=== PATIENT | female | born 1950 | race Caucasian/White ===

== ENCOUNTER 2017-03-07 14:12 | Emergency (ER) | payer MEDICARE ==
--- NOTE | 2017-03-07 14:40 | ERPHSYRPT ---
- History of Present Illness Time Seen by Provider: 03/07/17 14:36 Source: patient, family Exam Limitations: no limitations Patient Subjective Stated Complaint: pt states she has had back pain that radiated down right leg and buttock for the past 2 days. states she vomited once this morning due to pain. denies any injury. states pain is normally a 5 everday. Triage Nursing Assessment: pt pink, warm, dry. pt ambulated into er on own. no deformities noted in back. pedal pulses strong. pt smells of etoh. Physician History: The patient is a 66-year-old female with her significant other with multiple complaints and is a poor historian. She gave detailed history of back pain with pain radiating down the back of her right leg. There was no mention to the nurse of shortness of breath. When I interview the patient she denies back pain but instead tells me that she is short of breath for 2 days. She states that her primary medical doctor discontinued her prescription for Xanax and [place] several months ago. Her past medical history is significant for anxiety and COPD. Timing/Duration: day(s) (2) Activities at Onset: none Severity of Dyspnea-Max: mild Severity of Dyspnea-Current: mild Possible Cause: occasional episodes, smoke exposure Modifying Factors: Improves With: albuterol inhaler, exertion Associated Symptoms: denies symptoms Allergies/Adverse Reactions: No Known Drug Allergies Allergy (Verified 03/07/17 14:25) Home Medications: Estradiol 1 mg PO DAILY 07/18/14 [History] Hydrocodone Bit/Acetaminophen [[place] 10-325 Tablet] 1 tab PO Q8H PRN PRN [History] Ranitidine HCl 300 mg PO DAILY 07/18/14 [History] Aripiprazole [Abilify] 1 mg PO DAILY 01/06/15 [History] Gabapentin 300 mg PO BID 03/07/17 [History] Hx Tetanus, Diphtheria Vaccination/Date Given: Yes (up to date) Hx Influenza Vaccination/Date Given: Yes Hx Pneumococcal Vaccination/Date Given: No Immunizations Up to Date: Yes - Review of Systems Constitutional: No Fever, No Chills Eyes: No Symptoms Ears, Nose, & Throat: No Symptoms Respiratory: Dyspnea Cardiac: No Chest Pain, No Edema, No Syncope Abdominal/Gastrointestinal: No Abdominal Pain, No Nausea, No Vomiting, No Diarrhea Genitourinary Symptoms: No Dysuria Musculoskeletal: No Back Pain, No Neck Pain Skin: No Rash Neurological: No Dizziness, No Focal Weakness, No Sensory Changes Psychological: No Symptoms Endocrine: No Symptoms Hematologic/Lymphatic: No Symptoms Immunological/Allergic: No Symptoms All Other Systems: Reviewed and Negative - Past Medical History Pertinent Past Medical History: Yes Neurological History: No Pertinent History ENT History: Cataracts Cardiac History: No Pertinent History Respiratory History: COPD Endocrine Medical History: No Pertinent History Musculoskeletal History: Arthritis, Degenerative Disk Disease GI Medical History: GERD, Irritable Bowel History: No Pertinent History Psycho-Social History: Depression Female Reproductive Disorders: No Pertinent History Other Medical History: chronic back pain - Past Surgical History Past Surgical History: No Neuro Surgical History: No Pertinent History Cardiac: No Pertinent History Respiratory: No Pertinent History Gastrointestinal: No Pertinent History Genitourinary: No Pertinent History Musculoskeletal: Orthopedic Surgery Female Surgical History: No Pertinent History Other Surgical History: CARPAL TUNNEL, - Social History Smoking Status: Current every day smoker How long have you smoked: 55 Exposure to second hand smoke: Yes Drug Use: marijuana Patient Lives Alone: No - Nursing Vital Signs Nursing Vital Signs: Initial Vital Signs Temperature 98.4 F Temperature Source Oral Pulse Rate 68 Respiratory Rate 16 Blood Pressure [Right Arm] 148/76 Pain Intensity 6 - Physical Exam General Appearance: no apparent distress, alert Eye Exam: PERRL/EOMI Neck Exam: normal inspection, supple Respiratory Exam: rhonchi Cardiovascular/Chest Exam: normal heart sounds, regular rate/rhythm Abdominal/Gastrointestinal Exam: soft, No tenderness, No distention, No mass Rectal Exam: not done Extremity Exam: non-tender Neurologic Exam: intoxicated appearance, depressed mood/affect Skin Exam: normal color, warm, No dry SpO2 Interpretation: normal SpO2: 97 Oxygen Delivery: Room Air - Radiology Exams Chest X-ray Interpretation: Teleradiologist Report, Negative (stable nonacute chest per DR Lyon.) Ordered Tests: Active Orders 24 hr Category Date Time Status IV Insertion STAT Care 03/07/17 14:24 Active CHEST 2 VIEWS (PA AND LAT) Stat Exams 03/07/17 14:41 Completed BMP Stat Lab 03/07/17 14:50 Completed CBC W DIFF Stat Lab 03/07/17 14:50 Completed TROPONIN Stat Lab 03/07/17 14:50 Completed Respiratory Nebulizer STAT RT 03/07/17 14:42 Completed Medication Summary Discontinued Medications Generic Name Dose Route Start Last Admin Trade Name Barbi PRN Reason Stop Dose Admin Albuterol/Ipratropium 3 ml 03/07/17 14:41 03/07/17 14:56 Duoneb 0.5-3 Mg/3 Ml Neb IH 03/07/17 14:42 3 ml STAT ONE Administration Albuterol/Ipratropium Confirm 03/07/17 14:53 Duoneb 0.5-3 Mg/3 Ml Neb Administered 03/07/17 14:54 Dose 3 ml IH .STK-MED ONE Methylprednisolone Sodium Succinate 125 mg 03/07/17 14:41 03/07/17 14:52 Solu-Medrol 125 Mg IV 03/07/17 14:42 125 mg STAT ONE Administration Methylprednisolone Sodium Succinate Confirm 03/07/17 14:50 Solu-Medrol 125 Mg Administered 03/07/17 14:51 Dose 125 mg .ROUTE .STK-MED ONE Ondansetron HCl 4 mg 03/07/17 15:16 03/07/17 15:18 Zofran 4 Mg/2 Ml Vial IV 03/07/17 15:17 4 mg STAT ONE Administration Ondansetron HCl Confirm 03/07/17 15:18 Zofran 4 Mg/2 Ml Vial Administered 03/07/17 15:19 Dose 4 mg .ROUTE .STK-MED ONE Lab/Rad Data: Laboratory Result Diagrams 03/07/17 14:50 03/07/17 14:50 Laboratory Results 03/07/17 03/07/17 Range/Units 14:50 14:50 WBC 6.3 (4.0-10.5) K/mm3 RBC 4.24 (4.1-5.4) M/mm3 Hgb 14.1 (12.0-16.0) gm/dl Hct 42.7 (35-47) % MCV 100.7 H (78-100) fl MCH 33.3 H (26-32) pg MCHC 33.0 (32-36) g/dl RDW 13.0 (11.5-14.0) % Plt Count 329 (150-450) K/mm3 MPV 10.2 H (6-9.5) fl Gran % 37.3 (36.0-66.0) % Lymphocytes % 49.6 H (24.0-44.0) % Monocytes % 9.9 (0.0-12.0) % Eosinophils % 2.4 (0.00-5.0) % Basophils % 0.8 (0.0-0.4) % Basophils # 0.05 (0-0.4) Sodium 136 (136-145) mEq/L Potassium 4.2 (3.5-5.1) mEq/L Chloride 99 (98-107) mEq/L Carbon Dioxide 27.0 (21-32) mEq/L Anion Gap 14.4 (5-15) MEQ/L BUN 7 L (9-20) mg/dL Creatinine 0.75 (0.55-1.30) mg/dl Estimated GFR > 60 ML/MIN Glucose 98 (70-110) MG/DL Calcium 8.8 (8.5-10.1) mg/dL Troponin I < 0.017 (0.000-0.056) ng/ml - Progress Progress: improved Air Movement: good Progress Note: 03/07/17 15:39 After a DuoNeb treatment and Solu-Medrol 125 mg IV, the patient is feeling and breathing better. The patient also asked me if this would help the sciatica in her right leg. I said that the steroid given today and the steroid prescription should help inflammation. Blood Culture(s) Obtained: No Antibiotics given: No Counseled pt/family regarding: lab results, diagnosis, need for follow-up, rad results - Departure Time of Disposition: 15:40 Departure Disposition: Home Clinical Impression: Dyspnea on effort Condition: Stable Critical Care Time: No Additional Instructions: You had shortness of breath that was relieved with albuterol and a steroid in the ER. You were given a prescription for prednisone 60 mg once a day for 5 days. Continue with your albuterol inhaler as needed at home. Follow-up as scheduled with your primary medical doctor on Tuesday. Prescriptions: Prednisone 10 mg [Deltasone 10 mg] 60 mg PO UD #30 tablet
[2017-03-07] MEDS ORDERED: DUONEB 0.5-3 MG/3 ml Neb IH ONE ×2 (14:41→14:53)
[2017-03-07] MEDS ORDERED: solu-MEDROL 125 MG IV ONE (14:41)
[2017-03-07] MEDS ORDERED: solu-MEDROL 125 MG ONE (14:50)
[2017-03-07 14:53] LABS: BASOPHIL % 0.8 % (0.0-0.4); Eosinophil % 2.4 % (0.00-5.0); Granulocytes % 37.3 % (36.0-66.0); Lymphocytes % 49.6 % (24.0-44.0); Mean Cell Volume 100.7 fl (78-100); Mean Corpuscular Hemoglobin 33.3 pg (26-32); Mean Platelet Volume 10.2 fl (6-9.5); Monocytes % 9.9 % (0.0-12.0); Platelet Count 329 K/mm3 (150-450); Red Blood Count 4.24 M/mm3 (4.1-5.4); White Blood Count 6.3 K/mm3 (4.0-10.5)
[2017-03-07 15:07] LABS: ANION GAP 14.4 MEQ/L (5-15); BLOOD UREA NITROGEN 7 mg/dL (9-20); CHLORIDE 99 mEq/L (98-107); Glucose 98 MG/DL (70-110); Potassium 4.2 mEq/L (3.5-5.1); SODIUM 136 mEq/L (136-145); TROPONIN < 0.017 ng/ml (0.000-0.056)
--- NOTE | 2017-03-07 15:10 | XRAY ---
Indication: Short of breath and weakness. Comparison: February 11, 2016. PA/lateral chest remains hyperinflated and clear. Heart is not enlarged. Vascularity normal. Bony thorax intact again with minimal scoliosis. Impression: Stable nonacute chest.
[2017-03-07] MEDS ORDERED: Zofran 4 MG/2 ML VIAL IV ONE (15:16)
[2017-03-07] MEDS ORDERED: Zofran 4 MG/2 ML VIAL ONE (15:18)
[2017-03-07 15:39] VITALS: O2SAT 97
[2017-03-07 15:57] VITALS: BP 172/81; PULSE 64
== END 2017-03-07 15:54 | disposition home or self-care (01) ==
LOC: ED 14:12
DX: R06.09 Other forms of dyspnea (principal); J44.9 Chronic obstructive pulmonary disease, unspecified; F17.200 Nicotine dependence, unspecified, uncomplicated
CPT/HCPCS: 36000; 36415; 71020; 80048; 84484; 85025; 94640; 96374; 96375; 99284; J2405; J2930; A9270-GY

== ENCOUNTER 2017-06-25 19:24 | Emergency (ER) | payer MEDICARE ==
[2017-06-25] MEDS ORDERED: Rocephin 1000 MG INJ IM ONE (19:33)
[2017-06-25] MEDS ORDERED: Rocephin 1000 MG INJ ONE (19:38)
--- NOTE | 2017-06-25 19:38 | ERPHSYRPT ---
- History of Present Illness Time Seen by Provider: 06/25/17 19:34 Source: patient Physician History: 67-year-old female came to the emergency room with complaining of severe sore throat and right-sided neck pain. Patient was seen by her primary care physician to 3 days ago for earache and was treated conservatively. Since yesterday she started having a severe sore throat and difficulty in swallowing as well as painful swallowing, so she came to the emergency room for further evaluation. She denies any nausea, vomiting, headache, fever, chills, urinary symptoms. Timing/Duration: gradual onset ENT Location: ear (R) Associated Symptoms: ear pain (R), sore throat Allergies/Adverse Reactions: No Known Drug Allergies Allergy (Verified 03/07/17 14:25) Home Medications: Estradiol 1 mg PO DAILY 07/18/14 [History] Hydrocodone Bit/Acetaminophen [[place] 10-325 Tablet] 1 tab PO Q8H PRN PRN [History] Ranitidine HCl 300 mg PO DAILY 07/18/14 [History] Aripiprazole [Abilify] 1 mg PO DAILY 01/06/15 [History] Gabapentin 300 mg PO BID 03/07/17 [History] Hx Tetanus, Diphtheria Vaccination/Date Given: Yes (up to date) Hx Influenza Vaccination/Date Given: Yes Hx Pneumococcal Vaccination/Date Given: No - Review of Systems Constitutional: No Symptoms Eyes: No Symptoms Ears, Nose, & Throat: Painful Swallowing Respiratory: No Symptoms Cardiac: No Symptoms Abdominal/Gastrointestinal: No Symptoms Genitourinary Symptoms: No Symptoms Musculoskeletal: No Symptoms Skin: No Symptoms - Past Medical History Pertinent Past Medical History: Yes Neurological History: No Pertinent History ENT History: Cataracts Cardiac History: No Pertinent History Respiratory History: COPD Endocrine Medical History: No Pertinent History Musculoskeletal History: Arthritis, Degenerative Disk Disease GI Medical History: GERD, Irritable Bowel History: No Pertinent History Psycho-Social History: Depression Female Reproductive Disorders: No Pertinent History Other Medical History: chronic back pain - Past Surgical History Past Surgical History: No Neuro Surgical History: No Pertinent History Cardiac: No Pertinent History Respiratory: No Pertinent History Gastrointestinal: No Pertinent History Genitourinary: No Pertinent History Musculoskeletal: Orthopedic Surgery Female Surgical History: No Pertinent History Other Surgical History: CARPAL TUNNEL, - Social History Smoking Status: Current every day smoker How long have you smoked: 55 Exposure to second hand smoke: Yes Drug Use: marijuana Patient Lives Alone: No - Physical Exam General Appearance: no apparent distress Eye Exam: bilateral eye: normal inspection, PERRL, EOMI, abnormal EOM, abnormal pupil, conjunctival hemorrhage, photophobia, vision changes, other Ear Exam: bilateral ear: auricle normal, canal normal, TM normal, bleeding, discharge, erythema, foreign body, swelling, tenderness, TM dull, TM red, TM bulging, TM perforation, other Nasal Exam: normal inspection Throat Exam: moist mucus membranes, pharynx swelling Neck Exam: normal inspection Cardiovascular/Respiratory Exam: chest non-tender Abdominal Exam: non-tender Neurologic Exam: alert, oriented x 3 - Course Nursing assessment & vital signs reviewed: Yes - Progress Progress: unchanged Counseled pt/family regarding: diagnosis, need for follow-up - Departure Time of Disposition: 19:37 Departure Disposition: Home Clinical Impression: Tonsillitis with exudate Condition: Stable Critical Care Time: No Referrals: PINKY MARCH [Primary Care Provider] - Instructions: Strep Throat Additional Instructions: UPPER RESPIRATORY INFECTIONS 1. The signs and symptoms of a cold may last up to 10 days. These illnesses are due to viruses which are not treatable with antibiotics. 2. The following suggestions can aid in recovery and to minimize symptoms: A. Increase fluid intake. B. Acetaminophen or Ibuprofen as directed. C. Avoid smoking environments as this will increase the risk of developing pneumonia. D. For children, may use a cool mist vaporizer in the child's room. 3. Contact your Family Physician if you note: A. Persisten fever >103 for more than 3 days B. Breathing difficulty C. Productive cough of yellow/green sputum D. Illness greater than 7 days E. Persistent vomiting F. Stiff neck Please follow the instructions given to you. Please take your medication as prescribed if given. If symptoms recur or get worse, come back to the emergency room if you cannot reach your primary care physician, or call your primary care physician for an appointment. Again if your symptoms get worse, come back to the emergency room. Thanks for visiting emergency room, and let us take care of you. Prescriptions: Amoxicillin 500 mg PO TID #30 tablet
[2017-06-25] MEDS ORDERED: XYLOCAINE 1% HCL 20 ML MDV ONE (19:39)
[2017-06-25 20:08] VITALS: BP 124/76; PULSE 87; O2SAT 95
== END 2017-06-25 20:08 | disposition home or self-care (01) ==
LOC: ED 19:24
DX: J03.90 Acute tonsillitis, unspecified (principal)
CPT/HCPCS: 96372; 99284; J0696

== ENCOUNTER 2019-05-26 22:08 | Emergency (ER) | payer MEDICARE ==
[2019-05-26 22:28] VITALS: BP 124/61; PULSE 56; O2SAT 92
--- NOTE | 2019-05-26 22:30 | ERPHSYRPT ---
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 presents with recurrance , CBC has been normal and 3 months since Tx ; erythematous under white mouth lesions swallowing OK in ER; chest clear; Timing/Duration: gradual onset, days Severity: moderate Prearrival Treatment: no prearrival treatment Modifying Factors: Improves With: nothing Associated Symptoms: denies symptoms, No difficulty swallowing Allergies/Adverse Reactions: No Known Drug Allergies Allergy (Verified 06/25/17 19:41) Home Medications: Estradiol 1 mg PO DAILY 07/18/14 [History] Aripiprazole [Abilify] 5 mg PO DAILY 01/06/15 [History] Diclofenac Sodium 75 mg PO DAILY 06/25/17 [History] Escitalopram Oxalate 10 mg [Lexapro 10 MG] 20 mg PO DAILY 06/25/17 [History] Pantoprazole Sodium [Protonix] 40 mg PO DAILY 06/25/17 [History] Propranolol HCl 10 mg PO BID 06/25/17 [History] Hx Tetanus, Diphtheria Vaccination/Date Given: Yes (up to date) Hx Influenza Vaccination/Date Given: Yes Hx Pneumococcal Vaccination/Date Given: No - Review of Systems Constitutional: No Fever, No Chills Eyes: No Symptoms Ears, Nose, & Throat: Other (mouth pain) Respiratory: No Cough, No Dyspnea Cardiac: No Chest Pain, No Edema, No Syncope Abdominal/Gastrointestinal: No Abdominal Pain, No Nausea, No Vomiting, No Diarrhea Genitourinary Symptoms: No Dysuria Musculoskeletal: No Back Pain, No Neck Pain Skin: No Rash Neurological: No Dizziness, No Focal Weakness, No Sensory Changes Psychological: No Symptoms Endocrine: No Symptoms Hematologic/Lymphatic: No Symptoms Immunological/Allergic: No Symptoms All Other Systems: Reviewed and Negative - Past Medical History Pertinent Past Medical History: Yes Neurological History: No Pertinent History ENT History: Cataracts Cardiac History: No Pertinent History Respiratory History: COPD Endocrine Medical History: No Pertinent History Musculoskeletal History: Arthritis, Degenerative Disk Disease GI Medical History: GERD, Irritable Bowel History: No Pertinent History Psycho-Social History: Depression Female Reproductive Disorders: No Pertinent History Other Medical History: chronic back pain - Past Surgical History Past Surgical History: No Neuro Surgical History: No Pertinent History Cardiac: No Pertinent History Respiratory: No Pertinent History Gastrointestinal: No Pertinent History Genitourinary: No Pertinent History Musculoskeletal: Orthopedic Surgery Female Surgical History: No Pertinent History Other Surgical History: CARPAL TUNNEL, - Social History Smoking Status: Current every day smoker How long have you smoked: 55 Exposure to second hand smoke: Yes Drug Use: marijuana Patient Lives Alone: No - Nursing Vital Signs Nursing Vital Signs: Initial Vital Signs Temperature 98.6 F 05/26/19 22:16 Pulse Rate 56 L 05/26/19 22:16 Respiratory Rate 16 05/26/19 22:16 Blood Pressure 124/61 05/26/19 22:16 O2 Sat by Pulse Oximetry 92 L 05/26/19 22:16 Pain Scale Pain Intensity 6 - Physical Exam General Appearance: no apparent distress, alert Eye Exam: bilateral eye: PERRL, EOMI Ear Exam: bilateral ear: auricle normal, canal normal, TM normal Nasal Exam: normal inspection Throat Exam: moist mucus membranes, No dental tenderness, No excessive drooling , No tongue swollen, No tonsillar exudate, No uvula swelling, No voice changes Neck Exam: normal inspection, non-tender, supple, trachea midline Cardiovascular/Respiratory Exam: normal breath sounds, regular rate/rhythm Abdominal Exam: non-tender, soft Neurologic Exam: alert, oriented x 3, sensation nml, No motor deficits Skin Exam: normal color, warm, dry - Course Nursing assessment & vital signs reviewed: Yes Ordered Tests: Active Orders 24 hr Category Date Time Status CBC W DIFF Stat Lab 05/26/19 22:30 Ordered - Progress Progress: unchanged Progress Note: 05/26/19 22:51 pt declines CBC, since had one three weeks ago and was OK, eplained to pt that this could have changed, and discussed risk/benafit if this testing and she declines and prefers to proceed with tx. Counseled pt/family regarding: lab results, diagnosis, need for follow-up - Departure Departure Disposition: Home Clinical Impression: Thrush, oral Condition: Good Critical Care Time: No Referrals: YSABEL FAIR MD [Primary Care Provider] - Instructions: Thrush (DC) Additional Instructions: followup with your Dr. return meantime fi not improving or trouble swallowing' Prescriptions: Nystatin 60 ml [Nystatin SUSPENSION 60 ML] 60 ml PO QID #100 bottle
[2019-05-26] MEDS ORDERED: Nystatin SUSPENSION 60 ML PO ONE (22:55)
[2019-05-27] MEDS ORDERED: Nystatin SUSPENSION 60 ML PO SCH (10:00)
== END 2019-05-26 23:11 | disposition home or self-care (01) ==
LOC: ED 22:08
DX: B37.0 Candidal stomatitis (principal)
CPT/HCPCS: 99283; A9270-GY

== ENCOUNTER 2020-08-12 08:59 | Day surgery (SDC) | payer MEDICARE ==
[~2020-08-12 08:59] MED LIST: Ak-Dilate OPHTHALMIC*** 1.065 ML, Cyclogyl 1% OPHTH SOL 5 ML 1.065 ML, GATIFLOXACIN 0.5... OP ONE; DIPRIVAN 200 MG/20 ML IV ONE; Lactated Ringers 1,000 ML IV ONE; Lactated Ringers 1,000 ML IV SCH; NON-FORMULARY ITEM IJ ONE; NON-FORMULARY ITEM OP ONE; TETRACAINE 0.5% STERI-UNIT SOL OP ONE; cefUROXime sodium 0.005 GM in Sodium Chloride Flush 30 ML*** 0.5 ML IJ SCH
[2020-08-12] MEDS ORDERED: ACETAZOLAMIDE 250 MG TABLET PO ONE (09:00)
[2020-08-12] MEDS ORDERED: Zofran 4 MG/2 ML VIAL IV PRN (09:00)
[2020-08-12] MEDS ORDERED: Epinephrine Preservative Free 1 MG/ML IJ ONE (09:00)
[2020-08-12] MEDS ORDERED: LIDOCAINE HCL 1% 50 MG/5 ML VL PF IJ ONE (09:00)
[2020-08-12] MEDS ORDERED: BETADINE 5% OPHTHALMIC 30 ML OP ONE (09:00)
[2020-08-12] MEDS ORDERED: NON-FORMULARY ITEM OP ONE (11:00)
[2020-08-12 11:55] VITALS: BP 146/97; PULSE 60; O2SAT 95
--- NOTE | 2020-08-13 10:57 | OP ---
DATE/TIME OF OPERATION: 08/12/2020 1044 TIME DICTATED: 08/12/2020 1314 PREOPERATIVE DIAGNOSIS: Senile cataract of left eye. POSTOPERATIVE DIAGNOSIS: Senile cataract of left eye. SURGEON: Amada Milian MD SUPERVISOR WINTER: NONE OPERATION: Cataract extraction of left eye with an intraocular lens implant STANDARD COMPLEX__X____ ANESTHESIA: __X____ Monitored anesthesia care in combination with topical and intra-cameral anesthesia (because of the established specific risk of reflux, arrhythmias, or an anxiety attack associated with ocular manipulation as well as difficulty of the oliving machine operator to manage such potentially catastrophic events while simultaneously attempting to complete the surgical procedure, it was deemed necessary for the patient's safety to have an anesthesiologist or a nurse au pair present during the procedure whenever possible. The anesthesiologist or the nurse au pair was utilized to monitor and regulate the intravenous sedation of the patient, so the patient was cooperative, relaxed, and comfortable). Topical anesthesia using Tetracaine eye drops together with intra cameral anesthesia using Lidocaine 1% MPF. The nurse was utilized to monitor the patient. ANESTHESIA PROVIDER: Laci Morejon CRNA COMPLICATIONS: None. BLOOD LOSS: None INDICATIONS: The patient is undergoing cataract surgery in the hopes of eliminating the visual complaints and difficulty. PROCEDURE: After arriving at the facility's outpatient surgery area, an IV was started; the patient was given 5 mg of p.o. Versed. (If an anesthesia provider was not monitoring the patient) The patient was then given topical anesthetic Tetracaine eye drops. A cotton pellet was soaked into a solution of a combination of Zymaxid 0.5%, Paresh-Synephrine 2.5% and Ocufen (other drops might have been substituted referenced in the patient's record). The pellet was inserted by the RN into the lower conjunctival cul-de-sac with a sterile forceps and left for 20 minutes. The pellet was then removed by the RN with a sterile forceps before taking the patient to the operating room. The preoperative area nurse identified the patient and marked the correct eye to be operated on. I identified the correct eye to be operated on and marked it appropriately in the outpatient surgery area. The patient was then taken into the operating room. Tetracaine eye drops were installed again in the correct eye. The eyelids and the lashes and the lid margins were scrubbed with Betadine solution. One drop of the diluted Betadine solution was placed in the conjunctival cul-de-sac for 45 seconds and then was irrigated. A drop of Tetracaine Gel was placed in the conjunctival cul-de-sac. The patient's forehead was taped to secure it during the procedure. The patient was monitored. The patient was then draped in the usual way for this procedure. An eye speculum was used to separate the eyelids. The eye was then fixated and a temporal 2.5 mm incision was made in the clear cornea temporally at the limbus. Through the incision, 0.25 cc of 1% non-preserved lidocaine was injected into the anterior chamber for intracameral anesthesia. The anterior chamber was then filled with viscoelastic. The pupil was small. I felt that it would be safer to mechanically dilate the pupil. A Malyugin ring was used at this point which dilated the pupil. That was removed at the end of the procedure prior to aspiration of the viscoelastic from the anterior chamber and posterior to the intraocular lens implant. The cataract had a great amount of cortical changes. That rendered seeing the anterior capsule difficult for a safe performance of an anterior capsulotomy. I injected an air bubble into the anterior chamber. I then injected 1 ML of vision blue solution into the anterior chamber. The vision blue solution was irrigated from the anterior chamber after 30 seconds. The anterior capsule was stained which facilitated performing the anterior capsulotomy safely. After that was completed, a cystotome was introduced into the anterior chamber and a round anterior capsulotomy was performed. The capsule was removed by a forceps. Hydrodissection was next carried utilizing a 25-gauge cannula and balanced salt solution to delineate the cortical material from the capsule and the nucleus from the cortical material. The nucleus was rotated freely into the capsular bag with no difficulty. The phaco tip of the [employer] Phacoemulsifier was introduced into the anterior chamber and two grooves were made into the nucleus 90 degrees apart. Using two spatulas resulted into the nucleus being fractured into four quadrants. The phaco tip was then used to remove each quadrant of the nucleus. Viscoelastic was used during this process to protect the corneal endothelium. Once the entire nucleus was removed, the phaco tip then was removed and the irrigation tip was introduced into the eye and the cortex was removed. The posterior capsule was polished. It was noticed that there was a tear into the posterior capsule with few vitreous strands into the pupil plan. An anterior vitrectomy was performed. A 24.00 diopter, SN60WF, posterior chamber lens implant, was inspected and found to be grossly normal. The implant was inserted into the implant injector cartridge; Viscoelastic again was introduced into the anterior chamber, which filled the capsular bag. The implant injector's cartridge tip was placed at the limbal wound and the posterior chamber implant was released into the capsular bag and rotated appropriately. The implant was found to be into the capsular bag and it was centered. 0.2 ml of Tri-Moxi was introduced via 27 gauge cannula into the vitreous cavity through the ciliary processes. Viscoelastic was aspirated from the anterior chamber and posterior to the intraocular lens implant from the capsular bag using the irrigating tip. The anterior chamber was irrigated and filled with 5 cc antibiotic solution (500 cc of BSS plus 2 ml of Fortaz 100 mg/ml) ( if patient was not allergic to the medication). The lips of the corneal incision were hydrated using BSS solution. The anterior chamber was checked and found to be water tight. ___X___ One drop each of antibiotic, steroid and NSAID drops (refer to chart for drops used) were placed in the conjunctival cul-de-sac of the operated eye. Patient tolerated the procedure quite well and left the operating room in satisfactory condition. NOTES: 1. It was noticed right before introducing the intraocular lens implant that some zonules were not attached which compromised the capsular bag so I introduced a Morcher capsular X patch and ring into the capsular bag to keep it expanded. 2. 1 mg into 0.1 ml of Cefuroxime was injected into the anterior chamber posterior to the intraocular lens implant at the end of the procedure. DISCHARGE SUMMARY: The patient was released in stable condition. The patient and those with the patient were given an instruction sheet as of how to care for the eye after surgery as well as counseling on any abnormal laboratory studies by the postoperative RN. The patient was also given an appointment card for follow-up in the office and is to call immediately for any difficulties including but not limited to pain in the eye, decreased vision, discharge from the eye, headache and or fever. DISCHARGE DIAGNOSIS: Pseudophakia of left eye
== END 2020-08-12 12:03 | disposition home or self-care (01) ==
LOC: SDC 08:59
PROVIDERS: ATTEND Ophthalmology
DX: H25.812 Combined forms of age-related cataract, left eye (principal); J44.9 Chronic obstructive pulmonary disease, unspecified; I51.9 Heart disease, unspecified; K21.9 Gastro-esophageal reflux disease without esophagitis; F31.9 Bipolar disorder, unspecified; Z79.899 Other long term (current) drug therapy
CPT/HCPCS: 66982; C1780; J0171; J2001; J2704; A9270-GY

== ENCOUNTER 2020-09-16 09:57 | Day surgery (SDC) | payer MEDICARE ==
[2020-09-16] MEDS ORDERED: Ketamine HCl 50 MG/ML ONE (10:11)
[2020-09-16] MEDS ORDERED: DIPRIVAN 200 MG/20 ML IV ONE ×2 (10:11→10:48)
[2020-09-16 10:28] VITALS: O2SAT 97
[2020-09-16] MEDS ORDERED: TETRACAINE 0.5% STERI-UNIT SOL OP ONE ×2 (10:30)
[2020-09-16] MEDS ORDERED: NON-FORMULARY ITEM IJ ONE (10:30)
[2020-09-16] MEDS ORDERED: cefUROXime sodium 0.005 GM in Sodium Chloride Flush 30 ML*** 0.5 ML IJ SCH (10:30)
[2020-09-16] MEDS ORDERED: Ak-Dilate OPHTHALMIC*** 1.065 ML, Cyclogyl 1% OPHTH SOL 5 ML 1.065 ML, GATIFLOXACIN 0.5... OP ONE ×4 (10:30)
[2020-09-16] MEDS ORDERED: Lactated Ringers 1,000 ML IV SCH (10:30)
[2020-09-16] MEDS ORDERED: BETADINE 5% OPHTHALMIC 30 ML OP ONE (10:30)
[2020-09-16] MEDS ORDERED: Versed 2 MG/2 ML Injection IV ONE (10:46)
[2020-09-16] MEDS ORDERED: Xylocaine-Mpf 2% 5 Ml Vial ONE (10:48)
[2020-09-16] MEDS ORDERED: ROBINUL ONE (11:05)
[2020-09-16] MEDS ORDERED: Versed 2 MG/2 ML Injection ONE (11:07)
[2020-09-16] MEDS ORDERED: Lactated Ringers 1,000 ML IV ONE (11:07)
[2020-09-16] MEDS ORDERED: ACETAZOLAMIDE 250 MG TABLET PO ONE (11:30)
[2020-09-16] MEDS ORDERED: Zofran 4 MG/2 ML VIAL IV PRN (11:30)
[2020-09-16] MEDS ORDERED: LIDOCAINE HCL 1% 50 MG/5 ML VL PF IJ ONE (12:00)
[2020-09-16] MEDS ORDERED: Epinephrine Preservative Free 1 MG/ML INTRAOP ONE (12:00)
[2020-09-16 14:49] VITALS: BP 140/82; PULSE 82
--- NOTE | 2020-09-17 07:59 | OP ---
DATE/TIME OF OPERATION: 09/16/2020 1346 TIME DICTATED: 1803 PREOPERATIVE DIAGNOSIS: Senile cataract of right eye. POSTOPERATIVE DIAGNOSIS: Senile cataract of right eye. SURGEON: Amada Milian MD NEEDLE GRINDER: None. OPERATION: Cataract extraction of right eye with an intraocular lens implant. STANDARD __X__ COMPLEX ANESTHESIA: MAC. ___X___ Monitored anesthesia care in combination with topical and intra-cameral anesthesia (because of the established specific risk of reflux, arrhythmias, or an anxiety attack associated with ocular manipulation as well as difficulty of the mill turner to manage such potentially catastrophic events while simultaneously attempting to complete the surgical procedure, it was deemed necessary for the patient's safety to have an anesthesiologist or a nurse cryptoanalysis teacher present during the procedure whenever possible. The anesthesiologist or the nurse cryptoanalysis teacher was utilized to monitor and regulate the intravenous sedation of the patient, so the patient was cooperative, relaxed, and comfortable). Topical anesthesia using Tetracaine eye drops together with intra cameral anesthesia using Lidocaine 1% MPF. The nurse was utilized to monitor the patient. ANESTHESIA PROVIDER: Khang Rios CRNA. COMPLICATIONS: None. BLOOD LOSS: None. INDICATIONS: The patient is undergoing cataract surgery in the hopes of eliminating the visual complaints and difficulty. PROCEDURE: After arriving at the facility's outpatient surgery area, an IV was started; the patient was given 5 mg of p.o. Versed. (If an anesthesia provider was not monitoring the patient) The patient was then given topical anesthetic Tetracaine eye drops. A cotton pellet was soaked into a solution of a combination of Zymaxid 0.5%, Paresh-Synephrine 2.5% and Ocufen (other drops might have been substituted referenced in the patient's record). The pellet was inserted by the RN into the lower conjunctival cul-de-sac with a sterile forceps and left for 20 minutes. The pellet was then removed by the RN with a sterile forceps before taking the patient to the operating room. The preoperative area nurse identified the patient and marked the correct eye to be operated on. I identified the correct eye to be operated on and marked it appropriately in the outpatient surgery area. The patient was then taken into the operating room. Tetracaine eye drops were installed again in the correct eye. The eyelids and the lashes and the lid margins were scrubbed with Betadine solution. One drop of the diluted Betadine solution was placed in the conjunctival cul-de-sac for 45 seconds and then was irrigated. A drop of Tetracaine Gel was placed in the conjunctival cul-de-sac. The patient's forehead was taped to secure it during the procedure. The patient was monitored. The patient was then draped in the usual way for this procedure. An eye speculum was used to separate the eyelids. The eye was then fixated and a temporal 2.5 mm incision was made in the clear cornea temporally at the limbus. Through the incision, 0.25 cc of 1% non-preserved lidocaine was injected into the anterior chamber for intracameral anesthesia. The anterior chamber was then filled with viscoelastic. The pupil was small. I felt that it would be safer to mechanically dilate the pupil. A Malyugin ring was used at this point which dilated the pupil. That was removed at the end of the procedure prior to aspiration of the viscoelastic from the anterior chamber and posterior to the intraocular lens implant. The cataract had a great amount of cortical changes. That rendered seeing the anterior capsule difficult for a safe performance of an anterior capsulotomy. I injected an air bubble into the anterior chamber. I then injected 1 ML of vision blue solution into the anterior chamber. The vision blue solution was irrigated from the anterior chamber after 30 seconds. The anterior capsule was stained which facilitated performing the anterior capsulotomy safely. After that was completed, a cystotome was introduced into the anterior chamber and a round anterior capsulotomy was performed. The capsule was removed by a forceps. Hydrodissection was next carried utilizing a 25-gauge cannula and balanced salt solution to delineate the cortical material from the capsule and the nucleus from the cortical material. The nucleus was rotated freely into the capsular bag with no difficulty. The phaco tip of the [employer] Phacoemulsifier was introduced into the anterior chamber and two grooves were made into the nucleus 90 degrees apart. Using two spatulas resulted into the nucleus being fractured into four quadrants. The phaco tip was then used to remove each quadrant of the nucleus. Viscoelastic was used during this process to protect the corneal endothelium. Once the entire nucleus was removed, the phaco tip then was removed and the irrigation tip was introduced into the eye and the cortex was removed. The posterior capsule was polished. It was noticed that there was a tear into the posterior capsule with few vitreous strands into the pupil plan. An anterior vitrectomy was performed. A 24.00 diopter, SN60WF, posterior chamber lens implant, was inspected and found to be grossly normal. The implant was inserted into the implant injector cartridge; Viscoelastic again was introduced into the anterior chamber, which filled the capsular bag. The implant injector's cartridge tip was placed at the limbal wound and the posterior chamber implant was released into the capsular bag and rotated appropriately. The implant was found to be into the capsular bag and it was centered. __X__ 0.2 ml of Tri-Moxi was introduced via 27 gauge cannula into the vitreous cavity through the ciliary processes. Viscoelastic was aspirated from the anterior chamber and posterior to the intraocular lens implant from the capsular bag using the irrigating tip. The anterior chamber was irrigated and filled with 5 cc antibiotic solution (500 cc of BSS plus 2 ml of Fortaz 100 mg/ml) ( if patient was not allergic to the medication). The lips of the corneal incision were hydrated using BSS solution. The anterior chamber was checked and found to be water tight. One drop each of antibiotic, steroid and NSAID drops (refer to chart for drops used) were placed in the conjunctival cul-de-sac of the operated eye. Patient tolerated the procedure quite well and left the operating room in satisfactory condition. DISCHARGE SUMMARY: The patient was released in stable condition. The patient and those with the patient were given an instruction sheet as of how to care for the eye after surgery as well as counseling on any abnormal laboratory studies by the postoperative RN. The patient was also given an appointment card for follow-up in the office and is to call immediately for any difficulties including but not limited to pain in the eye, decreased vision, discharge from the eye, headache and or fever. DISCHARGE DIAGNOSIS: Pseudophakia of right eye.
== END 2020-09-16 15:00 | disposition home or self-care (01) ==
LOC: SDC 09:57
PROVIDERS: ATTEND Ophthalmology
DX: H25.811 Combined forms of age-related cataract, right eye (principal); J44.9 Chronic obstructive pulmonary disease, unspecified; I51.9 Heart disease, unspecified; K21.9 Gastro-esophageal reflux disease without esophagitis; Z79.899 Other long term (current) drug therapy
CPT/HCPCS: C1780; J0171; J2001; J2250; J2704; A9270-GY

== ENCOUNTER 2024-02-14 18:02 | Emergency (ER) | payer MEDICARE ==
[2024-02-14 18:14] VITALS: RESP 18; TEMP 97
[2024-02-14] MEDS ORDERED: TORAdol 30 mg Injection ONE (18:30)
--- NOTE | 2024-02-14 18:30 | ERPHSYRPT ---
- History of Present Illness Time Seen by Provider: 02/14/24 18:26 Source: patient Exam Limitations: no limitations Patient Subjective Stated Complaint: pt here for pain to left ankle after twisted it while putting on shoe today. Triage Nursing Assessment: pt alert, resp easy, walked in with a limp, has swelling left ankle, ice applied, has strong pedal pulse, nial beds pink Physician History: 73-year-old female presents to our ED for pain to her left lateral ankle. Patient states she twisted her ankle today while put her shoe on it morning.. Patient is ambulatory. Patient has been ambulatory throughout the day. Patient observed swelling later in the day and called her primary care doctor who advised her to come to our ED for evaluation. Pain described as an ache that is localized. No radiation. Some discomfort when she walks some pain with palpation as well. Patient otherwise voices no other complaints or concerns at this time. Patient took a Delmita pill today at approximately 1 PM. Patient requesting additional pain medication at this time. Significant other at bedside. They voiced no other complaints or concerns at this time. Portions of this note were created with voice recognition technology. There may be grammatical, spelling, punctuation or sound alike errors Timing/Duration: today Severity: moderate Modifying Factors: Improves With: movement Associated Symptoms: denies symptoms Allergies/Adverse Reactions: No Known Drug Allergies Allergy (Verified 02/14/24 18:08) Home Medications: estradioL [Estradiol] 1 mg PO DAILY 07/18/14 [History] Pantoprazole Sodium [Protonix] 40 mg PO DAILY 06/25/17 [History] Propranolol HCl 10 mg PO BID 06/25/17 [History] Fluticasone Propionate [Flonase NASAL] 16 gm NS DAILY 08/07/20 [History] Hydrocodone/Acetaminophen [Hydrocodon-Acetaminophn 10-325] 1 each PO UD 08/07/20 [History] Bupropion HCl 150 mg Sr [Wellbutrin SR 150 MG] 150 mg PO BID 08/12/20 [History] Glycopyrrolate/Formoterol Fum [Bevespi Aerosphere Inhaler] 5.9 gm IH DAILY 08/12/20 [History] Hydroxyzine HCl 25 mg [Atarax 25 mg] 25 mg PO Q8H PRN PRN 09/16/20 [History] Amlodipine Besylate [Norvasc] 1 ea DAILY 02/14/24 [History] Diclofenac Potassium 25 mg PO DAILY 02/14/24 [History] Famotidine 20 mg [Pepcid 20 MG] 20 mg PO BID 02/14/24 [History] Hx Tetanus, Diphtheria Vaccination/Date Given: Yes (up to date) Hx Influenza Vaccination/Date Given: No Hx Pneumococcal Vaccination/Date Given: No Immunizations Up to Date: Yes Travel Risk - International Travel Have you traveled outside of the country in past 3 weeks: No - Coronavirus Screening Are you exhibiting any of the following symptoms?: No Close contact with a COVID-19 positive Pt in past 14-21 Days: No - Vaccine Status Have you recieved a Covid-19 vaccination: Yes Retail Marketing Coordinator: Unknown - Vaccination Dates Date of 2cond Vaccination (if applicable): 2020 Dates if Unknown: ? - Review of Systems Constitutional: No Symptoms, No Fever, No Chills Eyes: No Symptoms Ears, Nose, & Throat: No Symptoms Respiratory: No Symptoms, No Cough, No Dyspnea Cardiac: No Symptoms, No Chest Pain, No Edema, No Syncope Abdominal/Gastrointestinal: No Symptoms, No Abdominal Pain, No Nausea, No Vomiting, No Diarrhea Genitourinary Symptoms: No Symptoms, No Dysuria Musculoskeletal: No Symptoms, No Back Pain, No Neck Pain Skin: No Symptoms, No Rash Neurological: No Symptoms, No Dizziness, No Focal Weakness, No Sensory Changes Psychological: No Symptoms Endocrine: No Symptoms Hematologic/Lymphatic: No Symptoms Immunological/Allergic: No Symptoms All Other Systems: Reviewed and Negative - Past Medical History Pertinent Past Medical History: Yes Neurological History: No Pertinent History ENT History: Cataracts Cardiac History: No Pertinent History Respiratory History: COPD Endocrine Medical History: No Pertinent History Musculoskeletal History: Arthritis, Degenerative Disk Disease GI Medical History: GERD, Irritable Bowel History: No Pertinent History Psycho-Social History: Anxiety, Depression Female Reproductive Disorders: No Pertinent History Other Medical History: chronic back pain - Past Surgical History Past Surgical History: Yes Neuro Surgical History: No Pertinent History Cardiac: No Pertinent History Respiratory: No Pertinent History Gastrointestinal: No Pertinent History, Cholecystectomy Genitourinary: No Pertinent History Musculoskeletal: Orthopedic Surgery Female Surgical History: No Pertinent History Other Surgical History: CARPAL TUNNEL, port placement and removal - Social History Smoking Status: Current every day smoker How long have you smoked: 55 Exposure to second hand smoke: No Drug Use: marijuana Patient Lives Alone: No - Nursing Vital Signs Nursing Vital Signs: Initial Vital Signs Temperature 97.0 F 02/14/24 18:13 Pulse Rate 74 02/14/24 18:13 Respiratory Rate 18 02/14/24 18:13 Blood Pressure 159/97 02/14/24 18:13 O2 Sat by Pulse Oximetry 96 02/14/24 18:13 Pain Scale Pain Intensity 6 - Physical Exam General Appearance: no apparent distress, alert Eye Exam: PERRL/EOMI, eyes nml inspection Ears, Nose, Throat Exam: normal ENT inspection, TMs normal, pharynx normal, moist mucous membranes Neck Exam: normal inspection, non-tender, supple, full range of motion Respiratory Exam: normal breath sounds, lungs clear, airway intact, No respiratory distress Cardiovascular Exam: regular rate/rhythm, normal heart sounds, normal peripheral pulses Gastrointestinal/Abdomen Exam: soft, normal bowel sounds, No tenderness, No mass Back Exam: normal inspection, normal range of motion, No CVA tenderness, No vertebral tenderness Extremity Exam: normal inspection, normal range of motion, pelvis stable Neurologic Exam: alert, oriented x 3, cooperative, normal mood/affect, nml cerebellar function, nml station & gait, sensation nml, No motor deficits Skin Exam: normal color, warm, dry, No rash Lymphatic Exam: No adenopathy SpO2 Interpretation: normal SpO2: 96 O2 Delivery: Room Air - Course Nursing assessment & vital signs reviewed: Yes - Radiology Exams Ankle X-ray Interpretation: Interpreted by me (No fracture or dislocation. Soft tissue swelling) Ordered Tests: Active Orders 24 hr Category Date Time Status Cold Application STAT Care 02/14/24 18:10 Active ANKLE (3 VIEWS) Stat Exams 02/14/24 18:09 Taken Medication Summary Discontinued Medications Generic Name Dose Route Start Last Admin Trade Name Freq PRN Reason Stop Dose Admin Ketorolac Tromethamine 30 mg 02/14/24 18:28 02/14/24 18:32 Ketorolac Tromethamine 30 Mg/Ml Inj IM 02/14/24 18:29 30 mg STAT ONE Administration Ketorolac Tromethamine Confirm 02/14/24 18:30 Ketorolac Tromethamine 30 Mg/Ml Inj Administered 02/14/24 18:31 Dose 30 mg .ROUTE .STK-MED ONE - Progress Progress: improved Progress Note: 73-year-old female presents to our ED with swelling and pain to the lateral aspect of the left ankle. Physical exam significant for swelling laterally. X- ray negative for fracture dislocation. There is soft tissue swelling at the lateral aspect of the left lateral malleolus. Alfredo wrap applied. Patient referred to orthopedic clinic for further evaluation and treatment. Patient declined crutches. Patient received Toradol for pain control. Significant other at bedside. They voiced no other complaints or concerns at this time. Patient has Delmita at home for pain control Portions of this note were created with voice recognition technology. There may be grammatical, spelling, punctuation or sound alike errors 02/14/24 18:35 Complexity problem addressed is moderate acute complicated No critical care time Complex of data reviewed and analyzed is moderate. Dr. Anton independently reviewed the x-ray of the involved left ankle. Formal read pending Risk of complication and or risk of morbidity/mortality patient management is moderate. A referral to the orthopedic clinic completed. Patient declined crutches Vital stable. Time spent to discharge patient is approximately 15 minutes. Plan of care established for shared decision making. Patient agrees to follow- up in orthopedic clinic tomorrow as scheduled. No social determinants of health present impede follow-up. Portions of this note were created with voice recognition technology. There may be grammatical, spelling, punctuation or sound alike errors 02/14/24 18:37 Counseled pt/family regarding: diagnosis - Departure Departure Disposition: Home Clinical Impression: Ankle sprain Condition: Stable Critical Care Time: No Referrals: YSABEL FAIR MD [Primary Care Provider] - Follow up/PCP as directed Additional Instructions: Discharge/Care Plan FRED BHARDWAJ was seen on 02/14/24 in the Emergency Room. The patient was counseled regarding Diagnosis,Lab results, Imaging studies, need for follow up and when to return to the Emergency Room. Prescriptions given: Discharge Note I have spoken with the patient and/or caregivers. I have explained the patient's condition, diagnosis and treatment plan based on the information available to me at this time. I have answered the patient's and/or caregiver's questions and addressed any concerns. The patient and/or caregivers have as good understanding of the patient's diagnosis, condition and treatment plan as can be expected at this point. The vital signs have been stable. The patient's condition is stable and appropriate for discharge from the emergency department. The patient will pursue further outpatient evaluation with the primary care physician or other designated or consulting physician as outlined in the discharge instructions. The patient and/or caregivers are agreeable to this plan of care and follow-up instructions have been explained in detail. The patient and/or caregivers have received these instruction. The patient/and or caregivers are aware that any significant change in condition or worsening of symptoms should prompt an immediate return to this or the closest emergency department or call 911. Outpatient Orders: Ortho Referral Time Frame: 1 Day, Facility: [facility], Location: [facility]
[2024-02-14] MEDS: TORAdol 30 mg Injection IM ONE (18:32)
[2024-02-14 18:41] VITALS: BP 145/83; PULSE 72; O2SAT 93
--- NOTE | 2024-02-15 08:40 | XRAY ---
Indication: Pain and swelling following injury. Comparison: None 3 view left ankle demonstrates osteopenia and tiny cortical acute fracture lateral malleolus with adjacent soft tissue swelling. No other bony, articular, or soft tissue abnormalities. Comment: Fracture not reported by interpreting ER clinician. Telephone report was given to Dr. Joiner at 0835 hrs. on February 15, 2024.
== END 2024-02-14 18:48 | disposition home or self-care (01) ==
LOC: ED 18:02
DX: S93.402A Sprain of unspecified ligament of left ankle, initial encounter (principal); S82.62XA Displaced fracture of lateral malleolus of left fibula, initial encounter for closed fracture; X50.0XXA Overexertion from strenuous movement or load, initial encounter; Z79.891 Long term (current) use of opiate analgesic; Z79.899 Other long term (current) drug therapy; Z72.0 Tobacco use
CPT/HCPCS: 73610; 96372; 99283; J1885